=== PATIENT | male | born 1965 | race Caucasian/White ===

== ENCOUNTER → 2016-12-27 | Outpatient (CLI) | payer BC, OTHER ==
[~2016-12-27] MED LIST: ROSU10TA PO
== END | disposition home or self-care (01) ==
LOC: STAR 10:02
PROVIDERS: ATTEND Surgery
DX: Z02.9 Encounter for administrative examinations, unspecified (principal)

== ENCOUNTER 2017-01-01 06:47 | Day surgery (SDC) | payer BC, OTHER ==
[~2017-01-01] VITALS: Ht 185.4 cm; Wt 101.7 kg
[2017-01-01] MEDS ORDERED: LACTATED RINGERS 1,000 ML IV SCH (07:33)
[2017-01-01 07:36] VITALS: BP 128/90
[2017-01-01] MEDS ORDERED: BUPIVACAINE/PF 0.5% ONE (08:39)
[2017-01-01] MEDS ORDERED: MIDAZOLAM 1 MG/ML, 2ML ONE (08:39)
[2017-01-01] MEDS ORDERED: FENTANYL PF 100 MCG/2ML ONE (08:39)
[2017-01-01] MEDS ORDERED: EPINEPHRINE 1 MG/ML, 1ML ONE (08:40)
[2017-01-01] MEDS ORDERED: DEXAMETHASONE 4 MG/ML, 1ML ONE (09:16)
[2017-01-01] MEDS ORDERED: ROCURONIUM 10 MG/ML ONE (09:16)
[2017-01-01] MEDS ORDERED: GLYCOPYRROLATE 0.2MG/1ML, 5ML ONE (09:16)
[2017-01-01] MEDS ORDERED: ONDANSETRON 2MG/ML, 2ML ONE (09:16)
[2017-01-01] MEDS ORDERED: PROPOFOL 10 MG/ML, 20ML ONE (09:16)
[2017-01-01] MEDS ORDERED: NEOSTIGMINE 1 MG/ML, 10ML ONE (09:16)
[2017-01-01] MEDS ORDERED: CEFAZOLIN 1,000 MG ONE (09:16)
[2017-01-01] MEDS ORDERED: KETOROLAC 30 MG/1 ML ONE (09:16)
[2017-01-01] MEDS ORDERED: LABETALOL 5MG/ML, 20ML ONE (09:16)
[2017-01-01] MEDS ORDERED: HYDROmorphone 2 MG/ML, 1ML ONE (09:30)
[2017-01-01] MEDS ORDERED: EPINEPHRINE 1 MG/ML, 1ML INFIL ONE (09:40)
[2017-01-01] MEDS ORDERED: BUPIVACAINE/PF 0.5% INFIL ONE (09:40)
[2017-01-01] MEDS ORDERED: FENTANYL PF 100 MCG/2ML IV PRN (10:00)
[2017-01-01] MEDS ORDERED: LABETALOL 5MG/ML, 20ML IV PRN (10:00)
[2017-01-01] MEDS ORDERED: PROMETHAZINE 25 MG/ML, 1ML IV PRN (10:00)
[2017-01-01] MEDS ORDERED: ONDANSETRON 2MG/ML, 2ML IVPush PRN (10:00)
[2017-01-01] MEDS ORDERED: HYDROmorphone 1 MG/ML, 1ML IV PRN (10:00)
[2017-01-01] MEDS ORDERED: MEPERIDINE/PF 25MG/0.5ML IVPush PRN (10:00)
[2017-01-01] MEDS ORDERED: hydrALAzine 20 MG/ML, 1ML IV PRN (10:00)
[2017-01-01] MEDS ORDERED: ACETAMINOPHEN 325 MG TABLET PO PRN (10:00)
[2017-01-01] MEDS ORDERED: OXYcodone 5 MG/5 ML ORAL.SOL UDC PO PRN (10:00)
== END 2017-01-01 12:30 ==
LOC: OUT 06:47
PROVIDERS: ATTEND Surgery
DX: K42.9 Umbilical hernia without obstruction or gangrene (principal); E78.00 Pure hypercholesterolemia, unspecified; Z98.890 Other specified postprocedural states; Z72.89 Other problems related to lifestyle
CPT/HCPCS: 49585; C1781; J0171; J0690; J1100; J1170; J1885; J2250; J2405; J2704; J2710; J3010; J3490; J7120